=== PATIENT | female | born 1990 | race Caucasian/White ===

== ENCOUNTER → 2024-06-22 | Outpatient (CLI) | payer SELFPAY | LOC: LAB 17:35 → LAB SHORT 17:35 | DX: R30.0 Dysuria (principal); R35.0 Frequency of micturition; R31.9 Hematuria, unspecified | CPT/HCPCS: 87077; 87086; 87186 ==

== ENCOUNTER 2024-11-19 13:10 | Emergency (ER) | payer SELFPAY ==
[~2024-11-19] VITALS: Ht 162.6 cm; Wt 65.8 kg
[2024-11-19] MEDS ORDERED: Ketorolac Tromethamine 30mg Vial IM ONE (13:45)
[2024-11-19] MEDS ORDERED: Methocarbamol 500 MG Tab PO ONE (13:50)
[2024-11-19] MEDS ORDERED: HYDROmorphone HCl/Pf 1MG SYR IM ONE (14:20)
[2024-11-19] MEDS ORDERED: Robaxin750 MG PO (14:31)
[2024-11-19] MEDS ORDERED: Percocet 5-3251 EACH PO (14:31)
[2024-11-19] MEDS ORDERED: METPRE4DP PO (14:31)
== END 2024-11-19 14:40 | disposition home or self-care (01) ==
LOC: ER 13:10
DX: M62.830 Muscle spasm of back (principal); Z59.89 Other problems related to housing and economic circumstances; Z79.1 Long term (current) use of non-steroidal anti-inflammatories (NSAID); Z79.52 Long term (current) use of systemic steroids; Z79.891 Long term (current) use of opiate analgesic
CPT/HCPCS: 72070; 96372; 99283-25; A9270; J1171; J1885